=== PATIENT | female | born 1985 ===

== ENCOUNTER 2019-06-11 04:51 | Inpatient (IN) | payer OTHER ==
[2019-06-11 07:35] LABS: Hematocrit 37.8 % (30.3-42.9); Hemoglobin 13.1 gm/dl (10.1-14.3); Mean Corpuscular HGB Conc 35 % (30-34); Mean Corpuscular Volume 87 fl (79-97); Platelet Count 297 K/mm3 (140-440); Red Blood Count 4.35 M/mm3 (3.65-5.03); Red Cell Distribution Width 13.3 % (13.2-15.2)
[2019-06-11] MEDS ORDERED: NARCAN 0.4 MG/1 ML IV PRN (10:24)
[2019-06-11] MEDS ORDERED: ZOFRAN IV PRN ×2 (10:24→23:51)
[2019-06-11] MEDS ORDERED: BRETHINE SUB-Q PRN (10:24)
[2019-06-11] MEDS ORDERED: SUBLIMAZE IV PRN (10:24)
[2019-06-11] MEDS ORDERED: BRETHINE IVP PRN (10:24)
[2019-06-11] MEDS ORDERED: XYLOCAINE 2% INFILTRATI ONE (10:24)
--- NOTE | 2019-06-11 10:36 | History and Physical Report ---
History of Present Illness Date of examination: 06/11/19 Date of admission: 06/11/2019 Chief complaint: My water broke History of present illness: 33 yo Fe , CHRISTI 06/04/19 ([place]), 41 weeks 0 days, presents with SROM 06/11/19 0200am, clear fluid. Pt initiated late care with [facility] at 26 weeks (records available, reviewed, and scanned into chart). complicated by late care, chronic hematuria (Urology consult PP), [id number] PAP (ASCUS, Negative HR HPV), and history of macrosomia. labs: B positive, Rubella Immune, VDRL negative, HbsAg Negative, HIV Negative, GC/CL negative, 1 hr GTT WNL, GBS negative Past History Past Medical History: no pertinent history Past Surgical History: no surgical history [employer]CIAL ADMINISTRATOR History: abnormal PAP smear (ASCUS, Negative HR HPV). denies: chlamydia, gonorrhea, hepatitis B, hepatitis C, herpes, HIV, trichomonas Family/Genetic History: none Social history: no significant social history, , lives with family, full code. denies: smoking, alcohol abuse, prescription drug abuse, IV drug use - Obstetrical History Expected Date of Delivery: 06/04/19 Actual Gestation: 41 Week(s) 0 Day(s) : 3 Para: 2 Hx # Term Pregnancies: 2 Number of Pregnancies: 0 Spontaneous Abortions: 0 Induced : 0 Number of Living Children: 2 #1 Infant Gender: Male year: 2,[birth year] Birthweight: 4.5 kg (Macrosomia) Method of Delivery: Vaginal Gestational age at delivery: 40 #2 Gender: Female year: 2,[birth year] Birthweight: 3.2 kg Method of Delivery: Vaginal Gestational age at delivery: 40 Complications: none Medications and Allergies Allergies Allergy/AdvReac Type Severity Reaction Status Date / Time No Known Allergies Allergy Verified 06/11/19 05:55 Review of Systems Eyes: normal appearance Cardiovascular: no chest pain, no shortness of breath Respiratory: no shortness of breath Breasts: normal Gastrointestinal: no nausea, no vomiting, no diarrhea, no constipation Genitourinary: normal appearance, leakage of fluid (SROM 06/11 @0200, clear fluid (per pt)), contractions, no vaginal bleeding, no genital sores Integumentary: no rash, no sores, no lesions - Vital Signs Vital signs: Vital Signs Pulse BP 70 116/74 06/11/19 05:55 06/11/19 05:55 Temp Pulse Resp BP Pulse Ox 98.8 F 68 18 105/66 06/11/19 08:48 06/11/19 08:44 06/11/19 08:48 06/11/19 08:44 - Physical Exam Breasts: Positive: normal Cardiovascular: Regular rate, Normal S1, Normal S2, No murmurs Lungs: Positive: Normal air movement Abdomen: Positive: normal appearance, soft, normal bowel sounds. Negative: distention Genitourinary (Female): Positive: normal external genitalia, normal perenium Vulva: both: normal Vagina: Positive: normal moisture (Clear fluid per admitting RN) Uterus: Positive: enlarged (Gravid) Anus/Rectum: Positive: normal perianal skin Extremities: Positive: normal Deep Tendon Reflex Grade: Normal +2 - Obstetrical FHR: auscultation normal, category 1 Uterine Contraction Monitor Mode: External Cervical Dilatation: 4 (Per admitting RN) Cervical Effacement Percentage: 70 station: -2 Uterine Contraction Pattern: Irregular Uterine Tone Measurement Phase: Resting Uterine Contraction Intensity: Moderate Results Result Diagrams: 06/11/19 06:00 Abnormal lab results 06/11/19 Range/Units 06:00 MCHC 35 H (30-34) % All other labs normal. Assessment and Plan A: Term IUP at 41w 0d SROM 06/11 @0200, clear fluid Category 1 tracing GBS Negative P: Admit to L&D; Routine labor orders Pitocin augmentation May have IV pain med/epidural PRN Anticipate
[2019-06-11] MEDS ORDERED: PITOCin/NS 30 UNIT/500ML 30 UNITS/500 ML BAG IV SCH (11:00)
[2019-06-11] MEDS ORDERED: PITOCin/NS 20 UNIT/1000ML DRIP 20 UNITS/1,000 ML BAG IV SCH ×2 (11:00→23:00)
[2019-06-11] MEDS: LACTATED RINGERS 1,000 ML IV SCH ×2 (11:36→19:40)
[2019-06-11] MEDS ORDERED: STADOL IV PRN (16:56)
--- NOTE | 2019-06-11 21:53 | Progress Note ---
Assessment and Plan A: Term IUP at 41w 0d SROM 06/11 @0200, clear fluid Category 2 tracing GBS Negative Pitocin 6mu Pushed with pt with no decent of head (LOT with caput) despite hx of proven pelvis 10Lbs. Explained probability of c/section due to presentation and size. P: Continue routine labor orders Fentanyl 50mcg x1 Reposition far L lateral Dr. Vasquez notified of current status. IV pain med administration. C/S to follow his current case if no change in status Subjective - Subjective Date of service: 06/11/19 Principal diagnosis: Term IUP 41w0d Interval history: 33 yo Fe , CHRISTI 06/04/19 ([place]), 41 weeks 0 days, presents with SROM 06/11/19 0200am, clear fluid. Pt initiated late care with [facility] at 26 weeks (records available, reviewed, and scanned into chart). complicated by late care, chronic hematuria (Urology consult PP), [id number] PAP (ASCUS, Negative HR HPV), and history of macrosomia. labs: B positive, Rubella Immune, VDRL negative, HbsAg Negative, HIV Negative, GC/CL negative, 1 hr GTT WNL, GBS negative Patient reports: movement normal, contractions Objective - Vital Signs Vital Signs: Vital Signs - 12hr 06/11/19 06/11/19 06/11/19 11:48 11:50 12:53 Temperature 99.1 F Pulse Rate 67 56 L Respiratory 18 Rate Blood Pressure 104/71 109/62 O2 Sat by Pulse Oximetry 06/11/19 06/11/19 06/11/19 13:51 14:52 14:55 Temperature 98.4 F Pulse Rate 63 65 Respiratory 18 Rate Blood Pressure 108/63 109/63 O2 Sat by Pulse Oximetry 06/11/19 06/11/19 06/11/19 15:51 16:51 17:11 Temperature Pulse Rate 62 68 74 Respiratory Rate Blood Pressure 106/69 109/71 O2 Sat by Pulse 93 Oximetry 06/11/19 06/11/19 06/11/19 17:16 17:19 17:21 Temperature Pulse Rate 81 75 76 Respiratory Rate Blood Pressure O2 Sat by Pulse 91 92 94 Oximetry 06/11/19 06/11/19 06/11/19 17:26 17:31 17:36 Temperature Pulse Rate 72 64 85 Respiratory Rate Blood Pressure O2 Sat by Pulse 96 97 97 Oximetry 06/11/19 06/11/19 06/11/19 17:41 17:46 17:51 Temperature Pulse Rate 61 62 71 Respiratory Rate Blood Pressure 109/63 O2 Sat by Pulse 97 97 97 Oximetry 06/11/19 06/11/19 06/11/19 17:56 18:01 18:06 Temperature Pulse Rate 69 69 79 Respiratory Rate Blood Pressure O2 Sat by Pulse 97 96 97 Oximetry 06/11/19 06/11/19 06/11/19 18:11 18:16 18:21 Temperature Pulse Rate 74 73 75 Respiratory Rate Blood Pressure O2 Sat by Pulse 99 98 97 Oximetry 06/11/19 06/11/19 06/11/19 18:26 18:31 18:36 Temperature Pulse Rate 77 82 76 Respiratory Rate Blood Pressure O2 Sat by Pulse 97 99 99 Oximetry 06/11/19 06/11/19 06/11/19 18:41 18:46 18:51 Temperature Pulse Rate 77 75 69 Respiratory Rate Blood Pressure 118/71 O2 Sat by Pulse 99 100 99 Oximetry 06/11/19 06/11/19 06/11/19 18:56 18:58 18:59 Temperature 98.8 F Pulse Rate 76 74 Respiratory 20 Rate Blood Pressure O2 Sat by Pulse 95 92 10 L Oximetry 06/11/19 06/11/19 06/11/19 19:04 19:09 19:14 Temperature Pulse Rate 82 70 76 Respiratory Rate Blood Pressure O2 Sat by Pulse 99 99 99 Oximetry 06/11/19 06/11/19 06/11/19 19:15 19:19 19:24 Temperature Pulse Rate 53 L 80 89 Respiratory Rate Blood Pressure O2 Sat by Pulse 83 L 100 98 Oximetry 06/11/19 06/11/19 06/11/19 19:29 19:34 19:39 Temperature Pulse Rate 79 76 75 Respiratory Rate Blood Pressure O2 Sat by Pulse 97 97 98 Oximetry 06/11/19 06/11/19 06/11/19 19:41 19:44 19:49 Temperature Pulse Rate 62 73 70 Respiratory Rate Blood Pressure O2 Sat by Pulse 75 L 95 98 Oximetry 06/11/19 06/11/19 06/11/19 19:54 19:56 19:59 Temperature Pulse Rate 70 74 68 Respiratory Rate Blood Pressure O2 Sat by Pulse 96 94 96 Oximetry 06/11/19 06/11/19 06/11/19 20:04 20:05 20:09 Temperature Pulse Rate 84 83 71 Respiratory Rate Blood Pressure O2 Sat by Pulse 94 94 95 Oximetry 06/11/19 06/11/19 06/11/19 20:11 20:14 20:18 Temperature Pulse Rate 78 77 64 Respiratory Rate Blood Pressure O2 Sat by Pulse 94 95 93 Oximetry 06/11/19 06/11/19 06/11/19 20:19 20:24 20:29 Temperature Pulse Rate 76 72 66 Respiratory Rate Blood Pressure O2 Sat by Pulse 95 97 95 Oximetry 06/11/19 06/11/19 06/11/19 20:34 20:39 20:40 Temperature Pulse Rate 76 80 61 Respiratory Rate Blood Pressure O2 Sat by Pulse 98 98 94 Oximetry 06/11/19 20:44 Temperature Pulse Rate 75 Respiratory Rate Blood Pressure O2 Sat by Pulse 94 Oximetry - Exam Breasts: normal Cardiovascular: Regular rate, Normal S1, Normal S2, No murmurs Lungs: Clear to auscultation, Normal air movement Abdomen: Present: normal appearance, soft, normal bowel sounds. Absent: distention Vulva: both: normal (Clear fluid continues to leak) Uterus: Present: other (gravid) FHR: category 2 FHR comments: FHT 130s, moderate variability, early/variable decels Uterine Contraction Monitor Mode: External Cervical Dilatation: 10 (LOT, caput) Cervical Effacement Percentage: 100 station: 0 Uterine Contraction Pattern: Regular Uterine Tone Measurement Phase: Resting Uterine Contraction Intensity: Strong/Firm Extremities: normal Deep Tendon Reflex Grade: Normal +2 - Labs Labs: Abnormal Labs 06/11/19 06:00 MCHC 35 H Laboratory Results - last 24 hr 06/11/19 06/11/19 06/11/19 06:00 06:00 06:00 WBC 9.2 RBC 4.35 Hgb 13.1 Hct 37.8 MCV 87 MCH 30 MCHC 35 H RDW 13.3 Plt Count 297 RPR Nonreactive Blood Type B POSITIVE Antibody Screen Negative
[2019-06-11] MEDS ORDERED: PEPCID IV ONE (22:12)
[2019-06-11] MEDS ORDERED: BICITRA PO ONE (22:12)
[2019-06-11] MEDS ORDERED: REGLAN IV ONE (22:12)
[2019-06-11] MEDS ORDERED: LACTATED RINGERS 1,000 ML IV SCH (23:00)
[2019-06-11] MEDS ORDERED: ANCEF/STERILE WATER 2 GM/20 ML 2 GM/20 ML SYRINGE IV NR (23:00)
--- NOTE | 2019-06-11 23:43 | Procedure Note ---
OB Delivery Note - Delivery Date of Delivery: 06/11/19 (23:14) Surgeon: NANDA RANGEL (PAULO) Estimated blood loss: 100cc - Vaginal Delivery presentation: vertex Delivery position: OA (rotated from LOT to SHASHI at delivery) Intrapartum events: prolonged active phase, mult.variable deceleratio Delivery induction: none Delivery augmentation: pitocin Delivery monitor: external FHT, external uterine Route of delivery: (23:14) Delivery placenta: spontaneous (23:20) Delivery cord: 3 umbilical vessels Episiotomy: none Delivery laceration: none Anesthesia: intravenous Delivery comments: viable male infant (LOT rotated to SHASHI at delivery) over intact perineum at 23:14. Dr. Vasquez in room at time of delivery. Vigorous infant placed [id number] on maternal abdomen. Delayed cord clamping then cut by FOB. Spontaneous amin delivery of intact placenta with 3VC at 23:20. FF@U-2, small lochia. No tears or lacerations. EBL 100ml. and mother left in stable condition in L&D. - Infant A at 1 minute: 8 at 5 minutes: 9 Gender: Male (4330 grams, 9lbs 9oz, 22")
[2019-06-11] MEDS ORDERED: SODIUM CHLORIDE FLUSH SYRINGE 10 ML IV NR (23:45)
[2019-06-11] MEDS ORDERED: TUCKS PAD TP PRN (23:51)
[2019-06-11] MEDS ORDERED: BENADRYL PO PRN (23:51)
[2019-06-11] MEDS ORDERED: NORCO 5/325 PO PRN (23:51)
[2019-06-11] MEDS ORDERED: TYLENOL PO PRN (23:51)
[2019-06-11] MEDS ORDERED: MILK OF MAGNESIA PO PRN (23:51)
[2019-06-11] MEDS ORDERED: DULCOLAX PR PRN (23:51)
[2019-06-11] MEDS ORDERED: PHENERGAN PO PRN (23:51)
[2019-06-11] MEDS ORDERED: LANSINOH TP PRN (23:51)
[2019-06-12] MEDS: IBUPROFEN PO SCH ×4 (05:55→23:58)
--- NOTE | 2019-06-12 11:19 | Progress Note ---
Assessment and Plan - Patient Problems (1) Status post normal vaginal delivery Current Visit: Yes Status: Acute Plan to address problem: PPD 1 - stable Continue routine orders Encouraged gentle position changes and ambulation with assistance initially due to numbness in right thigh Anticipate discharge in 24 hours Subjective - Subjective Date of service: 06/12/19 Principal diagnosis: PPD #1, s/p Interval history: see H&P, OB Progress Note and OB Delivery Procedure Note Patient reports: appetite normal, voiding normally, pain well controlled, ambulating normally, other (reports right thigh numbness. Able to move legs and walk), no dizzy ambulation [place]: doing well Objective - Vital Signs Latest vital signs: Vital Signs Temp Pulse Resp BP BP Pulse Ox 06/12/19 10:00 98.4 F 69 20 91/49 95 06/12/19 05:55 20 06/12/19 04:00 98.7 F 69 18 111/78 06/12/19 01:05 61 103/55 06/12/19 00:51 67 107/58 06/12/19 00:35 66 107/52 06/12/19 00:21 70 115/58 06/12/19 00:05 74 99/52 06/11/19 23:50 67 104/57 06/11/19 23:35 79 105/61 06/11/19 23:20 75 104/56 06/11/19 20:44 75 94 06/11/19 20:40 61 94 06/11/19 20:39 80 98 06/11/19 20:34 76 98 06/11/19 20:29 66 95 06/11/19 20:24 72 97 06/11/19 20:19 76 95 06/11/19 20:18 64 93 06/11/19 20:14 77 95 06/11/19 20:11 78 94 06/11/19 20:09 71 95 06/11/19 20:05 83 94 06/11/19 20:04 84 94 06/11/19 19:59 68 96 06/11/19 19:56 74 94 06/11/19 19:54 70 96 06/11/19 19:49 70 98 06/11/19 19:44 73 95 06/11/19 19:41 62 75 L 06/11/19 19:39 75 98 06/11/19 19:34 76 97 06/11/19 19:29 79 97 06/11/19 19:24 89 98 06/11/19 19:19 80 100 06/11/19 19:15 53 L 83 L 06/11/19 19:14 76 99 06/11/19 19:09 70 99 06/11/19 19:04 82 99 06/11/19 18:59 98.8 F 20 10 L 06/11/19 18:58 74 92 06/11/19 18:56 76 95 06/11/19 18:51 69 118/71 99 06/11/19 18:46 75 100 06/11/19 18:41 77 99 06/11/19 18:36 76 99 06/11/19 18:31 82 99 06/11/19 18:26 77 97 06/11/19 18:21 75 97 06/11/19 18:16 73 98 06/11/19 18:11 74 99 06/11/19 18:06 79 97 06/11/19 18:01 69 96 06/11/19 17:56 69 97 06/11/19 17:51 71 109/63 97 06/11/19 17:46 62 97 06/11/19 17:41 61 97 06/11/19 17:36 85 97 06/11/19 17:31 64 97 06/11/19 17:26 72 96 06/11/19 17:21 76 94 06/11/19 17:19 75 92 06/11/19 17:16 81 91 06/11/19 17:11 74 93 06/11/19 16:51 68 109/71 06/11/19 15:51 62 106/69 06/11/19 14:55 98.4 F 18 06/11/19 14:52 65 109/63 06/11/19 13:51 63 108/63 06/11/19 12:53 56 L 109/62 06/11/19 11:50 67 104/71 06/11/19 11:48 99.1 F 18 Intake and Output 06/11/19 06/12/19 06/12/19 23:59 07:59 15:59 Intake Total 1011.7 Balance 1011.7 Intake: IV 1011.7 Lactated Ringers 1,000 ml 1000 @ 125 mls/hr IV DIRECT [facility] Rx#:[id number] PITOCin/NS 30 UNIT/500ML 11.7 30 units In 500 ml @ 4 mls/hr IV [facility] Rx#: [id number] Other: Estimated Blood Loss 100 - Exam Abdomen: Present: normal appearance, soft Vulva: both: normal Uterus: Present: normal, firm, fundal height above umbilicus Extremities: Present: normal Comments: small lochia
[2019-06-12 12:39] LABS: Hemoglobin 11.4 gm/dl (10.1-14.3)
[2019-06-13] MEDS: IBUPROFEN PO SCH ×4 (05:21→23:55)
--- NOTE | 2019-06-13 12:17 | Progress Note ---
Assessment and Plan A: day 2 S/P spontaneous vaginal delivery. Right thigh numbness and pain. P: Venous doppler US of right lower extremity. Will report results of US to MD when available and will defer to MD for further work up and management of right thigh pain and numbness. Subjective - Subjective Date of service: 06/13/19 Principal diagnosis: PPD #2, s/p Interval history: day 2 S/P spontaneous vaginal delivery. Patient reports small amount of lochia. She is voiding without difficulty, tolerating a regular diet, ambulating well without dizziness or weakness. She reports numbness and tingling (pins and needles feeling) in her right thigh since delivery. She reports right thigh pain. She denies any pain in left leg; she denies any lower back pain or pelvic pain. Patient denies headache, chest pain, cough, shortness of breath, nausea or vomiting, or swelling. Patient reports: appetite normal, voiding normally, flatus, ambulating normally, no dizzy ambulation, no nauseated [place]: doing well Objective - Vital Signs Latest vital signs: Vital Signs Temp Pulse Resp BP BP Pulse Ox 06/13/19 09:45 97.8 F 55 L 20 90/46 06/13/19 05:21 20 06/13/19 05:19 97.5 F L 57 L 18 106/71 96 06/12/19 23:58 18 06/12/19 17:23 98.5 F 65 18 97/55 95 Intake and Output 06/12/19 06/13/19 06/13/19 23:59 07:59 15:59 Intake Total 240 360 240 Balance 240 360 240 Intake: Oral 240 360 240 Other: Total, Intake Amount 240 120 240 # Voids Void 1 1 1 - Exam Cardiovascular: Present: Regular rate, Normal S1, Normal S2 Lungs: Present: Clear to auscultation Abdomen: Present: normal appearance, soft. Absent: distention, tenderness, guarding, rigidity Uterus: Present: normal, firm, fundal height below umbilicus. Absent: bogginess, tenderness Extremities: Present: edema (mild pedal edema bilaterally). Absent: tenderness
--- NOTE | 2019-06-13 13:22 | Vascular Lab Report ---
DUPLEX DOPPLER LOWER EXTREMITY VEINS, RIGHT INDICATION: right leg pain. TECHNIQUE: Duplex doppler imaging was performed through the veins of the right lower extremity using venous comp ression and other maneuvers. COMPARISON: None available. FINDINGS: Common Femoral vein: Negative. Superficial Femoral vein: Negative. Popliteal vein: Negative. Calf veins: Negative. Additional findings: None. IMPRESSION: 1. No sonographic evidence for DVT in the right lower extremity. Signer Name: Julien Reeder MD Signed: 06/13/2019 1:18 PM Workstation Name: [email or web address]
--- NOTE | 2019-06-13 15:12 | Event Note ---
Date: 06/13/19 Venous doppler of RLE is negative for DVT. Consulted with Dr. Vasquez re: this patient's symptoms and exam and results of venous doppler. Dr. Vasquez states OK to keep patient another night and observe for resolution or continuation of symptoms. Patient is ambulating well and reports no weakness of RLE. She also has no back pain.
[2019-06-14] MEDS: IBUPROFEN PO SCH ×2 (05:50→12:19)
--- NOTE | 2019-06-14 15:21 | Progress Note ---
Assessment and Plan A: day 3 S/P spontaneous vaginal delivery. Right leg pain and numbness resolved. P: Discharge patient home today. Discussed with patient discharge instructions and warning signs. Advised patient to avoid intercourse, lifting, and heavy housework. Advised patient to follow up at OB clinic in 6 weeks for exam. Patient voiced understanding of all instructions. Subjective - Subjective Date of service: 06/14/19 Principal diagnosis: PPD #3, s/p Interval history: day 3 S/P spontaneous vaginal delivery. Doing well. Patient desires discharge today. Patient reports small amount of lochia. Voiding without difficulty, ambulating well, tolerating a regular diet without nausea or vomiting, passing gas. Patient states right thigh pain and numbness have completely resolved. Venous doppler of right lower extremity negative. Patient denies headache, cough, chest pain, shortness of breath, nausea or vomiting, dizziness, leg pain, or heavy vaginal bleeding. Patient reports: appetite normal, voiding normally, pain well controlled, flatus, ambulating normally, no dizzy ambulation, no nauseated [place]: doing well Objective - Vital Signs Latest vital signs: Vital Signs Temp Pulse Resp BP BP Pulse Ox 06/14/19 07:10 98.5 F 53 L 18 110/70 06/14/19 00:17 98.4 F 55 L 16 127/75 99 Intake and Output 06/13/19 06/14/19 06/14/19 23:59 07:59 15:59 Intake Total 480 840 Balance 480 840 Intake: Oral 480 Intake, Free Water 480 360 Other: Total, Intake Amount 480 # Voids Void 3 2 - Exam Cardiovascular: Present: Regular rate, Normal S1, Normal S2 Lungs: Present: Clear to auscultation Abdomen: Present: normal appearance, soft, normal bowel sounds. Absent: distention, tenderness, guarding, rigidity Uterus: Present: normal, firm, fundal height below umbilicus. Absent: bogginess, tenderness Extremities: Present: normal. Absent: tenderness, edema
--- NOTE | 2019-06-14 15:33 | Discharge Summary ---
Providers - Providers Date of Admission: 06/11/19 10:24 Date of discharge: 06/14/19 Attending physician: JULIEN MARIN MD None Primary care physician: JULIEN MARIN MD Hospitalization Reason for admission: rupture of membranes Delivery: Episiotomy: none Laceration: none Other procedures: none complications: none Discharge diagnosis: IUP at term delivered [place] baby: male Pertinent studies: Labs Hospital course: Normal course Condition at discharge: Good Disposition: DC-01 TO HOME OR SELFCARE - Discharge Diagnoses (1) Term delivered Status: Acute Plan - Provider Discharge Summary Activity: routine, no sex for 6 weeks, no heavy lifting 4 weeks, no strenuous exercise Diet: routine Instructions: routine Additional instructions: Continue taking your vitamins and iron at home. Call your doctor immediately for: * Fever > 100.5 * Heavy vaginal bleeding ( >1 pad per hour) * Severe persistent headache * Shortness of breath * Reddened, hot, painful area to leg or breast - Follow up plan Follow up: JULIEN MARIN MD [Primary Care Provider] - 6 Weeks
[2019-06-14 17:02] VITALS: BP 125/72
== END 2019-06-14 17:25 | disposition home or self-care (01) | DRG 806 ==
LOC: TRG 04:51 → LD 05:56 → TRG 10:24 → OB 06-12 01:46
PROVIDERS: ADMIT Obstetrics & Gynecology; ATTEND Obstetrics & Gynecology
PROC: 10E0XZZ Delivery of Products of Conception, External Approach (ICD-10-PCS; principal; 2019-06-11)
DX: O76 Abnormality in fetal heart rate and rhythm complicating labor and delivery (principal); O63.9 Long labor, unspecified; Z37.0 Single live birth; Z3A.41 41 weeks gestation of pregnancy
CPT/HCPCS: 36415; 85014; 85018; 85027; 86592; 86850; 86900; 86901; G0378; J0595; J2590; J3010; J7120